=== PATIENT | male | born 1990 | race Caucasian/White ===

== ENCOUNTER 2016-06-08 17:16 | Emergency (ER) | payer OTHER ==
[2016-06-08 17:24] VITALS: BP 118/72; PULSE 90; TEMP 97.9; BMI 18.9
--- NOTE | 2016-06-08 18:00 | PDOC ---
History of Present Illness - General Chief Complaint: Redness To Affected Area Stated Complaint: EAR INFECTION Time Seen by Provider: 06/08/16 17:25 History Source: Patient Exam Limitations: No Limitations - History of Present Illness Initial Comments: CHIEF COMPLAINT: 26 y/o afebrile male c/o right ear pain and swelling today. HISTORY OF PRESENT ILLNESS: The patient denies f/c, n/v/d, drainage from the ear, change in hearing. Vital signs on arrival are within normal limits. REVIEW OF SYSTEMS: GENERAL/CONSTITUTIONAL: No fever/chills. No weakness. No weight change. HEAD, EYES, EARS, NOSE AND THROAT: +swelling and pain to right ear. No discharge from ears. No change in hearing. No sore throat. MUSCULOSKELETAL: No joint or muscle swelling or pain. No neck or back pain. SKIN: No rash or easy bruising. NEUROLOGIC: No headache, vertigo, loss of consciousness, or loss of sensation. PHYSICAL EXAM: GENERAL: The patient is awake, alert, and fully oriented, in no acute distress. He is well appearing, ambulatory, in NAD or obvious discomfort. HEAD: Normal with no signs of trauma. ENT: Pupils equal, round and reactive to light, extraocular movements intact, sclera anicteric, conjunctiva clear. Neck supple. Irregular area of swelling to right superior auricle that is TTP and fluctuant. No active drainage. EXTREMITIES: Normal range of motion, no edema. NEUROLOGICAL: Normal speech, normal gait. CN II-XII grossly intact. SKIN: Warm, dry, normal turgor, no rashes or lesions noted. Past History - Past Medical History Allergies/Adverse Reactions: Allergies Allergy/AdvReac Type Severity Reaction Status Date / Time No Known Allergies Allergy Verified 06/08/16 17:20 Home Medications: Ambulatory Orders Cephalexin Monohydrate [Keflex -] 500 mg PO BID #14 capsule 06/08/16 Clindamycin [Cleocin -] 300 mg PO Q6HPO #28 capsule 06/08/16 Other medical history: none - Psycho/Social/Smoking Cessation Hx Anxiety: No Suicidal Ideation: No Smoking History: Never smoked Have you smoked in the past 12 months: No Information on smoking cessation initiated: No Hx Alcohol Use: No Drug/Substance Use Hx: No Substance Use Type: None *Physical Exam - Vital Signs Last Vital Signs Temp Pulse Resp BP Pulse Ox 97.9 F 90 18 118/72 100 06/08/16 17:20 06/08/16 17:20 06/08/16 17:20 06/08/16 17:20 06/08/16 17:20 Medical Decision Making - Medical Decision Making A/P: 26 y/o male with auricular cellulitis. Will d/c to home with rx for keflex Suggested hot compresses multiples times per day Instructed him to f/u with his PCP next week and return to the ER with any worsening or concerning symptoms. The patient is requesting clinda instead of keflex. sent rx for clinda The patient verbalizes understanding of all instructions, has no further questions and is awaiting discharge. *DC/Admit/Observation/Transfer Diagnosis at time of Disposition: Cellulitis of auricle of right ear - Discharge Dispostion Disposition: HOME Condition at time of disposition: Good - Prescriptions Prescriptions: Cephalexin Monohydrate [Keflex -] 500 mg PO BID #14 capsule - Referrals Referrals: Jm Santos [Primary Care Provider] - - Patient Instructions Printed Discharge Instructions: DI for Cellulitis -- Adult Additional Instructions: Discharge Instructions: -Please take antibiotics as prescribed for entire 14 days -Apply hot compresses to the affected area multiple times per day to promote drainage -Return to the ER with any worsening or concerning symptoms.
== END 2016-06-08 18:07 | disposition home or self-care (01) ==
LOC: JERFT 17:16
DX: H60.11 Cellulitis of right external ear (principal)
CPT/HCPCS: 99281-25